=== PATIENT | female | born 1975 | race American Indian/Alaskan Native ===

== ENCOUNTER 2016-10-31 09:41 | Inpatient (IN) | payer MEDICAID ==
[2016-10-31 10:17] LABS: Mean Corpuscular HGB Conc 29 % (30-34); Platelet Count 354 K/mm3 (140-440); Red Blood Count 4.65 M/mm3 (3.65-5.03); White Blood Count 7.9 K/mm3 (4.5-11.0)
[2016-10-31 10:19] LABS: Hematocrit 32.1 % (30.3-42.9); Hemoglobin 9.4 gm/dl (10.1-14.3); Mean Corpuscular Hemoglobin 20 pg (28-32); Mean Corpuscular Volume 69 fl (79-97); Red Cell Distribution Width 25.8 % (13.2-15.2)
[2016-10-31 10:31] LABS: Anion Gap 18 mmol/L; BUN/Creatinine Ratio 18.57; Blood Urea Nitrogen 13 mg/dL (7-17); Calcium 8.8 mg/dL (8.4-10.2); Carbon Dioxide 22 mmol/L (22-30); Chloride 104.9 mmol/L (98-107); Glucose 87 mg/dL (65-100); Potassium 4.6 mmol/L (3.6-5.0); Sodium 140 mmol/L (137-145)
[2016-10-31 11:03] LABS: Anisocytosis 2+; Basophils % (Manual) 0 % (0.0-1.8); Blastocytes % (Manual) 0 %; Hypochromasia 2+; Microcytosis 2+
[2016-10-31 11:04] LABS: Diff Status Complete
--- NOTE | 2016-10-31 12:35 | Emergency Department Report ---
ED Chest Pain HPI - General Chief Complaint: Chest Pain Stated Complaint: CHEST PAIN Time Seen by Provider: 10/31/16 11:54 Source: patient Mode of arrival: Ambulatory Limitations: No Limitations - History of Present Illness Initial Comments: Patient complains of nonradiating left-sided anterior chest pain which is nonpleuritic and described as a heaviness. She states that she has had it since . She went to [place] on Saturday. She was admitted to the hospital through Saturday. She states that she receive 2 units of blood because "my iron was low". She states her last period was in July and it was heavy like she is not since had any vaginal bleeding. She states at [place] she was not informed that she had any blood in her stool. She states that she had a negative CAT scan at [place]. She does not believe that she had cardiac testing other than an EKG. Yesterday she states that she had some shortness of breath with her chest pain. She states that chest pain does seem to be associated to some degree with exertion. She also states that it improves if she lays down and worsens if she sits up. She denies any associated symptoms otherwise specifically nausea vomiting dizziness and sweating. MD Complaint: chest pain -: week(s) Onset: during exertion Pain Location: left chest Pain Radiation: none Severity: severe (stated severe at triage but is in no distress whatsoever now) Quality: pressure Consistency: intermittent Improves With: nothing Worsens With: nothing re: denies: nausea, vomting, diaphoresis, sense of impending doom Other Symptoms: denies: cough, fever, syncope Treatments Prior to Arrival: other (hospitalization and transfusion at [place]) Aspirin use within the Past 7 Days: (1) Yes - Related Data On Oral Contraceptives: No Previous Rx's Medication Instructions Recorded Last Taken Type Cyclobenzaprine [Flexeril 10 MG 10 mg PO TID PRN #30 tablet 11/04/14 Unknown Rx TAB] HYDROcodone/APAP 5-325 [[place] 1 each PO Q6HR PRN #15 tablet 11/04/14 Unknown Rx 5-325 mg TAB] Ibuprofen [Motrin 800 MG tab] 800 mg PO Q8HR #30 tablet 11/04/14 Unknown Rx Fluconazole [Diflucan TAB] 150 mg PO ONCE #1 tablet 01/14/15 Unknown Rx Nitrofurantoin [place]/M-Cryst 100 mg PO Q12HR #14 capsule 01/14/15 Unknown Rx [Macrobid CAP] Azithromycin [Zithromax TAB] 250 mg PO QDAY #6 tablet 06/10/15 Unknown Rx Prednisone [predniSONE 10 mg 10 mg PO .TAPER #1 tab.ds.pk 06/10/15 Unknown Rx (6-Day Pack, 21 Tabs)] Promethazine /Codeine 5 ml PO Q6H PRN #100 ml 06/10/15 Unknown Rx [Phenergan/Codeine 6.25-10 mg/5Ml] Allergies Allergy/AdvReac Type Severity Reaction Status Date / Time No Known Allergies Allergy Verified 01/14/15 09:36 Heart Score - HEART Score History: Moderately suspicious EKG: Non-specific Age: < 45 Risk factors: 1-2 risk factors Troponin: < normal limit HEART Score: 3 - Critical Actions Critical Actions: 0-3 pts:0.9-1.7%risk of adverse cardiac event.Candidate for discharge ED Review of Systems ROS: Stated complaint: CHEST PAIN Other details as noted in HPI Constitutional: denies: chills, fever Eyes: denies: eye pain, eye discharge, vision change ENT: denies: ear pain, throat pain Respiratory: denies: cough, shortness of breath, wheezing Cardiovascular: chest pain. denies: palpitations Endocrine: no symptoms reported Gastrointestinal: denies: abdominal pain, nausea, diarrhea Genitourinary: denies: urgency, dysuria, discharge Musculoskeletal: denies: back pain, joint swelling, arthralgia Skin: denies: rash, lesions Neurological: denies: headache, weakness, paresthesias Psychiatric: denies: anxiety, depression Hematological/Lymphatic: denies: easy bleeding, easy bruising ED Past Medical Hx - Past Medical History Previous Medical History?: Yes Hx Kidney Stones: Yes - Surgical History Past Surgical History?: Yes Additional Surgical History: X 1. STENT FOR KIDNEY STONES - Social History Smoking Status: Former Smoker Substance Use Type: None - Medications Home Medications: Home Medications Medication Instructions Recorded Confirmed Last Taken Type Cyclobenzaprine [Flexeril 10 MG 10 mg PO TID PRN #30 tablet 11/04/14 Unknown Rx TAB] HYDROcodone/APAP 5-325 [[place] 1 each PO Q6HR PRN #15 tablet 11/04/14 Unknown Rx 5-325 mg TAB] Ibuprofen [Motrin 800 MG tab] 800 mg PO Q8HR #30 tablet 11/04/14 Unknown Rx Fluconazole [Diflucan TAB] 150 mg PO ONCE #1 tablet 01/14/15 Unknown Rx Nitrofurantoin [place]/M-Cryst 100 mg PO Q12HR #14 capsule 01/14/15 Unknown Rx [Macrobid CAP] Azithromycin [Zithromax TAB] 250 mg PO QDAY #6 tablet 06/10/15 Unknown Rx Prednisone [predniSONE 10 mg 10 mg PO .TAPER #1 tab.ds.pk 06/10/15 Unknown Rx (6-Day Pack, 21 Tabs)] Promethazine /Codeine 5 ml PO Q6H PRN #100 ml 06/10/15 Unknown Rx [Phenergan/Codeine 6.25-10 mg/5Ml] ED Physical Exam - General Limitations: No Limitations General appearance: alert, in no apparent distress - Head Head exam: Present: atraumatic, normocephalic - Eye Eye exam: Present: normal appearance. Absent: scleral icterus - ENT ENT exam: Present: mucous membranes moist - Neck Neck exam: Present: normal inspection - Respiratory Respiratory exam: Present: normal lung sounds bilaterally. Absent: respiratory distress - Cardiovascular Cardiovascular Exam: Present: regular rate, normal rhythm. Absent: systolic murmur, diastolic murmur, rubs, gallop - GI/Abdominal GI/Abdominal exam: Present: soft, normal bowel sounds. Absent: distended, tenderness, guarding, rebound, rigid - Extremities Exam Extremities exam: Present: normal inspection - Back Exam Back exam: Present: normal inspection - Neurological Exam Neurological exam: Present: alert, oriented X3, CN II-XII intact. Absent: motor sensory deficit - Psychiatric Psychiatric exam: Present: normal affect, normal mood - Skin Skin exam: Present: warm, dry, intact, normal color. Absent: rash ED Course Vital Signs 10/31/16 10/31/16 10/31/16 09:52 10:57 11:00 Temperature 98.8 F Pulse Rate 76 77 Respiratory 18 15 Rate Blood Pressure 125/87 128/77 O2 Sat by Pulse 100 100 100 Oximetry 10/31/16 10/31/16 10/31/16 11:01 11:15 11:30 Temperature Pulse Rate 75 74 Respiratory 16 22 24 Rate Blood Pressure 138/73 126/75 O2 Sat by Pulse 98 96 100 Oximetry 10/31/16 10/31/16 10/31/16 11:45 12:00 12:15 Temperature Pulse Rate 77 73 76 Respiratory 18 27 H 21 Rate Blood Pressure 119/74 124/75 117/74 O2 Sat by Pulse 100 100 100 Oximetry 10/31/16 10/31/16 12:31 12:45 Temperature Pulse Rate 79 78 Respiratory 19 17 Rate Blood Pressure 138/73 122/79 O2 Sat by Pulse 100 Oximetry - Reevaluation(s) Reevaluation #1: Patient continues to have no distress and no current chest pain. She did show me her Ash chart on her cell phone. The listed tests do not include a cardiac stress test nor a CT of the chest. At this juncture I do not think she requires a CT of her chest as her history is not consistent with pulmonary embolism. She does require stress testing in my opinion. She will be admitted to the hospital service for further care and evaluation and testing at their discretion. 10/31/16 13:18 10/31/16 13:19 JAISON score - Jaison Score Age > 65: (0) No Aspirin use within the Past 7 Days: (1) Yes 3 or more CAD Risk Factors: (0) No 2 or more Angina events in past 24 hrs: (0) No Known CAD with more than 50% Stenosis: (0) No Elevated Cardiac Markers: (0) No ST Deviation Greater than 0.5mm: (0) No JAISON Score: 1 ED Medical Decision Making - Lab Data Result diagrams: 10/31/16 10:02 10/31/16 10:02 Laboratory Results - last 24 hr 10/31/16 10/31/16 10:02 10:02 WBC 7.9 RBC 4.65 Hgb 9.4 L Hct 32.1 MCV 69 L MCH 20 L MCHC 29 L RDW 25.8 H Plt Count 354 Add Manual Diff Complete Total Counted 100 Seg Neuts % (Manual) 65.0 Band Neutrophils % 4.0 Lymphocytes % (Manual) 17.0 Reactive Lymphs % (Man) 0 Monocytes % (Manual) 11.0 H Eosinophils % (Manual) 3.0 Basophils % (Manual) 0 Metamyelocytes % 0 Myelocytes % 0 Promyelocytes % 0 Blast Cells % 0 Nucleated RBC % Not Reportable Seg Neutrophils # Man 5.1 Band Neutrophils # 0.3 Lymphocytes # (Manual) 1.3 Abs React Lymphs (Man) 0.0 Monocytes # (Manual) 0.9 H Eosinophils # (Manual) 0.2 Basophils # (Manual) 0.0 Metamyelocytes # 0.0 Myelocytes # 0.0 Promyelocytes # 0.0 Blast Cells # 0.0 WBC Morphology Not Reportable Hypersegmented Neuts Not Reportable Hyposegmented Neuts Not Reportable Hypogranular Neuts Not Reportable Smudge Cells Not Reportable Toxic Granulation Not Reportable Toxic Vacuolation Not Reportable Dohle Bodies Not Reportable Pelger-Huet Anomaly Not Reportable Jessi Rods Not Reportable Platelet Estimate Not Reportable Clumped Platelets Not Reportable Plt Clumps, EDTA Not Reportable Large Platelets Not Reportable Giant Platelets Not Reportable Platelet Satelliting Not Reportable Plt Morphology Comment Not Reportable RBC Morphology Not Reportable Dimorphic RBCs Yes Polychromasia Not Reportable Hypochromasia 2+ Poikilocytosis Not Reportable Anisocytosis 2+ Microcytosis 2+ Macrocytosis Not Reportable Spherocytes Not Reportable Pappenheimer Bodies Not Reportable Sickle Cells Not Reportable Target Cells Not Reportable Tear Drop Cells Not Reportable Ovalocytes Not Reportable Helmet Cells Not Reportable Ram-Penryn Bodies Not Reportable Geronimo Rings Not Reportable [place] Cells Not Reportable Bite Cells Not Reportable Crenated Cell Not Reportable Elliptocytes Not Reportable Acanthocytes (Spur) Not Reportable Rouleaux Not Reportable Hemoglobin C Crystals Not Reportable Schistocytes Not Reportable Malaria parasites Not Reportable Kenji Bodies Not Reportable Hem Pathologist Commnt No Sodium 140 Potassium 4.6 Chloride 104.9 Carbon Dioxide 22 Anion Gap 18 BUN 13 Creatinine 0.7 Estimated GFR > 60 BUN/Creatinine Ratio 18.57 Glucose 87 Calcium 8.8 Troponin T < 0.010 - EKG Data -: EKG Interpreted by Me EKG shows normal: sinus rhythm, axis, intervals, ST-T waves Rate: normal - EKG Data RSR in V1 and V2 10/31/16 12:35 - Radiology Data interpreted by me: Chest x-ray shows no acute process Critical care attestation.: If time is entered above; I have spent that time in minutes in the direct care of this critically ill patient, excluding procedure time. ED Disposition Clinical Impression: Chest pain Qualifiers: Chest pain type: unspecified Qualified Code(s): R07.9 - Chest pain, unspecified Anemia Qualifiers: Anemia type: unspecified type Qualified Code(s): D64.9 - Anemia, unspecified Disposition: 09 OP ADMIT IP TO THIS HOSP Is pt being admited?: Yes Does the pt Need Aspirin: Yes Condition: Stable Instructions: Chest Pain (ED) Referrals: PRIMARY CARE, [Primary Care Provider] - 3-5 Days Time of Disposition: 13:21
--- NOTE | 2016-10-31 12:54 | XRay Report ---
PORTABLE CHEST: Chest pain. An AP portable view of the chest demonstrates a normal cardiac contour considering the limits of this technique. The lungs are clear with no evidence of infiltrate, fluid or failure. IMPRESSION: Normal portable chest.
[2016-10-31] MEDS ORDERED: BABY ASPIRIN PO ONE (13:22)
--- NOTE | 2016-10-31 13:40 | Admit Criteria Form ---
Admission Criteria Documentation: CARDIOLOGY GRG Clinical Indications for Admission to Inpatient Care ( Place 'X' for any and all applicable criteria): Hospital admission is needed for appropriate care of the patient because of ANY ONE of the following (1): [ ] I. Hemodynamic instability as indicated by ALL of the following (1)(2)(3) (4)(5) [ ]a) Vital signs or other findings not as expected for chronic patient condition or baseline [ ]b) Instability indicated by ANY ONE of the following: [ ]i) Hypotension [ ]ii) Symptomatic Tachycardia unresponsive to treatment ( e.g., analgesia, fluids, sedation as indicated) [ ]iii) Inadequate perfusion indicated by ANY ONE of the following: [ ] 1) Lactic acidosis (> 2 mmol/L) [ ] 2) New abnormal capillary refill (> 3 seconds) [ ] 3) Reduced urine output [ ] 4) New altered mental status [ ]iv) Orthostatic vital sign changes unresponsive to treatment (e.g., fluids) [ ]v) IV inotropic or vasopressor medication required to maintain adequate blood pressure or perfusion [ ] II. Severe heart failure as indicated by ANY ONE of the following(17)(18) [ ]a) Respiratory distress [ ]b) Hypotension [ ]c) Anasarca (refractory to outpatient therapy) [ ]d) Cardiac arrhythmias of immediate concern [ ]e) Myocardial ischemia [ ] III. Cardiac arrhythmias or findings of immediate concern indicated by ANY ONE of the following (19)(20): [ ] a) Heart rhythms that are inherently dangerous or unstable indicated by ANY ONE of the following (21)(22)(23): [ ] i) Resuscitated ventricular fibrillation or cardiac arrest [ ] ii) Ventricular escape rhythm [ ] iii) Sustained ventricular tachycardia (30 seconds or more of ventricular rhythm at greater than 100 beats per minute) [ ] iv) Nonsustained ventricular tachycardia and ANY ONE of the following: [ ] 1) Suspected cardiac ischemia as cause or consequence of ventricular tachycardia [ ] 2) In setting of acute myocarditis [ ] b) Unstable cardiac conduction defects indicated by ANY ONE of the following(23)(24)(25) [ ] i) Type II second-degree atrioventricular block [ ]ii) Third-degree atrioventricular block [ ]iii) New-onset left bundle branch block with suspected myocardial ischemia [ ]c) Any heart rhythm and ANY ONE of the following (21)(22)(26)(27) (28) [ ] i) Continuous long-term ECG monitoring needed (e.g., initiation of drug requiring monitoring for more than 24 hours) [ ] ii) Patient has automatic implanted cardioverter defibrillator that is repeatedly firing, malfunctioning, or in need of immediate adjustment of settings beyond the scope of ambulatory or observation care [ ]d) Heart rhythms of concern due to ANY ONE of the following: [ ] i) Hypotension [ ] ii) Respiratory distress [ ] iii) Association with other significant symptoms (e.g., bradycardia with syncope or ongoing dizziness, supraventricular tachycardia with chest pain (14)(15)(17) [ ] IV. Monitoring for cardiac contusion beyond the scope of observation care needed [A](30)(31)(32) [ ] V. Surgical or device complication (e.g., valve replacement complication , pacemaker dysfunction) (35)(41)(44)(45)(46) [ ] . Inpatient palliative care needed. [B](49) Also use Inpatient Palliative Care Criteria [ ] VII. Nonbacterial thrombotic (marantic) endocarditis (36)(43)(47)(48) [X ] VIII. Cardiology condition, symptom, or finding for which emergency and observation care has failed or are not considered appropriate. [ ] IX. Acute valvular disease requiring inpatient as indicated by ANY ONE of the following (41) [ ]a) Acute valvular regurgitation (42) [ ]b) Noninfectious valvulitis (43) [ ]c) Obstructive valve thrombosis [ ]d) Paravalvular leak [ ]e) Other significant valvular disorder remaining after emergency or observation level of care (as appropriate) [ ]X. Pericardial disease requiring inpatient treatment as indicated by ANY ONE of the following (33)(34)(35)(36)(37) [ ]a) Suspected tamponade (38)(39)(40) [ ]b) Hemopericardium [ ]c) Other significant pericardial disorder remaining after emergency or observation level of care (as appropriate) [ ] XI. Cardiac ischemia beyond scope of emergency and observation care. [ ] XII. Hypertension requiring inpatient treatment as indicated by ANY ONE of the following (6)(7)(8) [ ]a) SBP greater than 220 mm Hg or DBP greater than 120 mmHg despite treatment [ ]b) SBP greater than 140 mm Hg or DBP greater than 100 mm Hg with evidence of acute end organ damage as indicated by ANY ONE of the following [ ] i) Altered mental status [ ] ii) Acute renal failure as indicated by new onset of ANY ONE of the following (9)(10)(11)(12)(13) [ ]1) 3-fold rise in serum creatinine from baseline [ ]2) Serum creatinine greater than 4 mg/dL ( 354 micromoles/L) with acute rise greater than 0.5 mg/dL (44.2 micromoles/L) [ ]3) Reduction of more than 75% in estimated glomerular filtration rate from baseline [ ]4) Estimated glomerular filtration rate less than 35 mL/min/1.73m2 (0.59 mL/sec/1.73m2) in child up to 18 years of age [ ]5) Cessation of urine output indicated by ALL of the following [ ]A. Adequate volume status [ ]B. Inadequate urine output as indicated by ANY ONE of the following [ ]a. Urine output less than 0.3 mL/kg/hr for 24 hours [ ]b. Anuria (urine output less than 0.1 mL/kg/hr) for 12 hours [ ] iii) Aortic dissection [ ] iv) Myocardial Ischemia [ ] v) Left ventricular heart failure [ ]vi) Retinal Hemorrhage [ ]vii) Other significant finding [ ]c) Hypertension in child requiring inpatient treatment as indicated by ALL of the following(14)(15)(16) [ ] i) Outpatient treatment not effective, not available, or not appropriate [ ]ii) SBP or DBP greater than 95th percentile for age [ ]iii) Evidence of acute end organ damage as indicated by ANY ONE of the following [ ]1) Altered mental status [ ]2) Acute renal failure as indicated by new onset of ANY ONE of the following(9)(10)(11)(12)(13) [ ]A. 3-fold rise in serum creatinine from baseline [ ]B. Serum creatinine greater than 4 mg/dL (354 micromoles/L) with acute rise greater than 0.5 mg/dL (44.2 micromoles/L) [ ]C. Reduction of more than 75% in estimated glomerular filtration rate from baseline [ ]D. Estimated glomerular filtration rate less than 35 mL/min/1.73m2 (0.59 mL/sec/1.73m2) in child up to 18 years of age [ ]E. Cessation of urine output indicated by ALL of the following [ ]a. Adequate volume status [ ]b. Inadequate urine output as indicated by ANY ONE of the following [ ]i) Urine output less than 0.3 mL/kg/hr for 24 hours [ ]ii) Anuria ( urine output less than 0.1 mL/kg/hr) for 12 hours [ ]3) Severe headache [ ]4) Visual disturbance [ ]5) Retinal hemorrhage [ ]6) Other significant finding [ ]XIII. Complications of transplanted heart indicated by ANY ONE of the following(61): [ ]a) Acute graft rejection requiring inpatient management (eg, intravenous immunosuppression)(62)(63) [ ]b) Acute graft heart failure indicated by ANY ONE of the following(64): [ ]i) Hemodynamic instability [ ]ii) Cardiac arrhythmias of immediate concern [ ]iii) Pulmonary edema that is very severe (eg, mechanical ventilation needed, imminent or likely, need for 100% oxygen to keep oxygen saturation above 90%) [ ]iv) Pulmonary edema that is persistent as indicated by ALL of the following: [ ]1) New need for oxygen therapy to keep oxygen saturation above 90% (or increased FiO2 need from baseline) [ ]2) Has not improved sufficiently with emergency department or observation care IV diuretics or other heart failure treatments[E] [ ]v) Altered mental status that is severe or persistent [ ]vi) Increased creatinine (new on laboratory test) with reduction of more than 50% in estimated glomerular filtration rate from baseline [ ]vii) Progressively (ongoing) rising creatinine (known from past laboratory test) with reduction of more than 25% in estimated glomerular filtration rate from baseline [ ]viii) Acute renal failure [ ]ix) Acute peripheral ischemia (eg, examination shows pulseless, cool, mottled, or cyanotic extremity) [ ]x) Pulmonary artery catheter monitoring needed [ ]xi) Other sign or symptom of heart failure requiring inpatient treatment (ie, too severe or not responsive to outpatient and observation care treatment) [ ]c) Infection requiring inpatient management (eg, Hemodynamic instability, need for intravenous antimicrobial treatment)(66)(67)(68)(69)(70) [ ]d) Cardiac allograft vasculopathy requiring inpatient management ( eg evidence of cardiac ischemia)(71) [ ]e) Other complication of transplanted heart (eg, stroke, severe pulmonary hypertension, severe valvular dysfunction) requiring inpatient management(72) The original [facility] [employer] content created by [email or web address] has been revised. The portions of the content which have been revised are identified through the use of italic text or in bold, and [facility] has neither reviewed nor approved the modified material. All other unmodified content is copyright [facility] [email or web address]. Please see references footnoted in the original [facility] [email or web address] edition 2016 Admission Criteria Met: Yes
--- NOTE | 2016-10-31 21:57 | History and Physical Report ---
History of Present Illness Date of examination: 10/31/16 Date of admission: 10/31/16 13:22 Chief complaint: Chest pain for 5 days History of present illness: History of Present Illness Initial Comments: Patient complains of nonradiating left-sided anterior chest pain which is nonpleuritic and described as a heaviness. She states that she has had it since . She went to [facility] on Saturday. She was admitted to the hospital through Saturday. She states that she receive 2 units of blood because "my iron was low". She states her last period was in July and it was heavy like she is not since had any vaginal bleeding. She states at [facility] she was not informed that she had any blood in her stool. She states that she had a negative CAT scan at [facility]. She does not believe that she had cardiac testing other than an EKG. Yesterday she states that she had some shortness of breath with her chest pain. She states that chest pain does seem to be associated to some degree with exertion. She also states that it improves if she lays down and worsens if she sits up. She denies any associated symptoms otherwise specifically nausea vomiting dizziness and sweating. HEART Score History: Moderately suspicious EKG: Non-specific Age: < 45 Risk factors: 1-2 risk factors Troponin: < normal limit HEART Score: 3 - Past Medical History Previous Medical History?: Yes Hx Kidney Stones: Yes - Surgical History Past Surgical History?: Yes Additional Surgical History: X 1. STENT FOR KIDNEY STONES - Social History Smoking Status: Former Smoker Substance Use Type: None - Medications Home Medications: Home Medications Medication Instructions Recorded Confirmed Last Taken Type Cyclobenzaprine [Flexeril 10 MG 10 mg PO TID PRN #30 tablet 11/04/14 Unknown Rx TAB] HYDROcodone/APAP 5-325 [[place] 1 each PO Q6HR PRN #15 tablet 11/04/14 Unknown Rx 5-325 mg TAB] Ibuprofen [Motrin 800 MG tab] 800 mg PO Q8HR #30 tablet 11/04/14 Unknown Rx Fluconazole [Diflucan TAB] 150 mg PO ONCE #1 tablet 01/14/15 Unknown Rx Nitrofurantoin Kemper/M-Cryst 100 mg PO Q12HR #14 capsule 01/14/15 Unknown Rx [Macrobid CAP] Azithromycin [Zithromax TAB] 250 mg PO QDAY #6 tablet 03/18/16 Unknown Rx Prednisone [predniSONE 10 mg 10 mg PO .TAPER #1 tab.ds.pk 06/10/15 Unknown Rx (6-Day Pack, 21 Tabs)] Promethazine /Codeine 5 ml PO Q6H PRN #100 ml 06/10/15 Unknown Rx [Phenergan/Codeine 6.25-10 mg/5Ml] ROS: Stated complaint: CHEST PAIN Other details as noted in HPI Constitutional: denies: chills, fever Eyes: denies: eye pain, eye discharge, vision change ENT: denies: ear pain, throat pain Respiratory: denies: cough, shortness of breath, wheezing Cardiovascular: chest pain. denies: palpitations Endocrine: no symptoms reported Gastrointestinal: denies: abdominal pain, nausea, diarrhea Genitourinary: denies: urgency, dysuria, discharge Musculoskeletal: denies: back pain, joint swelling, arthralgia Skin: denies: rash, lesions Neurological: denies: headache, weakness, paresthesias Psychiatric: denies: anxiety, depression Hematological/Lymphatic: denies: easy bleeding, easy bruising Medications and Allergies Allergies Allergy/AdvReac Type Severity Reaction Status Date / Time No Known Allergies Allergy Verified 01/14/15 09:36 Home Medications Medication Instructions Recorded Confirmed Last Taken Type No Known Home Medications [No 10/31/16 10/31/16 Unknown History Reported Home Medications] Exam - Constitutional Vitals: Temp Pulse Resp BP Pulse Ox 98.4 F 72 20 109/59 99 10/31/16 20:58 10/31/16 20:58 10/31/16 20:58 10/31/16 20:58 10/31/16 20:58 General appearance: Present: no acute distress, well-nourished - EENT Eyes: Present: PERRL ENT: hearing intact, clear oral mucosa - Neck Neck: Present: supple, normal ROM - Respiratory Respiratory effort: normal Respiratory: bilateral: CTA - Cardiovascular Heart Sounds: Present: S1 & S2. Absent: rub, click - Extremities Extremities: pulses symmetrical, No edema Peripheral Pulses: within normal limits - Abdominal General gastrointestinal: Present: soft, non-tender, non-distended, normal bowel sounds Female genitourinary: Present: normal - Integumentary Integumentary: Present: clear, warm, dry - Musculoskeletal Musculoskeletal: gait normal, strength equal bilaterally - Psychiatric Psychiatric: appropriate mood/affect, intact judgment & insight - Neurologic Neurologic: CNII-XII intact, moves all extremities Results - Labs CBC & Chem 7: 10/31/16 10:02 10/31/16 10:02 Labs: Laboratory Last Values WBC 7.9 K/mm3 (4.5-11.0) 10/31/16 10:02 RBC 4.65 M/mm3 (3.65-5.03) 10/31/16 10:02 Hgb 9.4 gm/dl (10.1-14.3) L 10/31/16 10:02 Hct 32.1 % (30.3-42.9) 10/31/16 10:02 MCV 69 fl (79-97) L 10/31/16 10:02 MCH 20 pg (28-32) L 10/31/16 10:02 MCHC 29 % (30-34) L 10/31/16 10:02 RDW 25.8 % (13.2-15.2) H 10/31/16 10:02 Plt Count 354 K/mm3 (140-440) 10/31/16 10:02 Add Manual Diff Complete 10/31/16 10:02 Total Counted 100 10/31/16 10:02 Seg Neuts % (Manual) 65.0 % (40.0-70.0) 10/31/16 10:02 Band Neutrophils % 4.0 % 10/31/16 10:02 Lymphocytes % (Manual) 17.0 % (13.4-35.0) 10/31/16 10:02 Reactive Lymphs % (Man) 0 % 10/31/16 10:02 Monocytes % (Manual) 11.0 % (0.0-7.3) H 10/31/16 10:02 Eosinophils % (Manual) 3.0 % (0.0-4.3) 10/31/16 10:02 Basophils % (Manual) 0 % (0.0-1.8) 10/31/16 10:02 Metamyelocytes % 0 % 10/31/16 10:02 Myelocytes % 0 % 10/31/16 10:02 Promyelocytes % 0 % 10/31/16 10:02 Blast Cells % 0 % 10/31/16 10:02 Nucleated RBC % Not Reportable 10/31/16 10:02 Seg Neutrophils # Man 5.1 K/mm3 (1.8-7.7) 10/31/16 10:02 Band Neutrophils # 0.3 K/mm3 10/31/16 10:02 Lymphocytes # (Manual) 1.3 K/mm3 (1.2-5.4) 10/31/16 10:02 Abs React Lymphs (Man) 0.0 K/mm3 10/31/16 10:02 Monocytes # (Manual) 0.9 K/mm3 (0.0-0.8) H 10/31/16 10:02 Eosinophils # (Manual) 0.2 K/mm3 (0.0-0.4) 10/31/16 10:02 Basophils # (Manual) 0.0 K/mm3 (0.0-0.1) 10/31/16 10:02 Metamyelocytes # 0.0 K/mm3 10/31/16 10:02 Myelocytes # 0.0 K/mm3 10/31/16 10:02 Promyelocytes # 0.0 K/mm3 10/31/16 10:02 Blast Cells # 0.0 K/mm3 10/31/16 10:02 WBC Morphology Not Reportable 10/31/16 10:02 Hypersegmented Neuts Not Reportable 10/31/16 10:02 Hyposegmented Neuts Not Reportable 10/31/16 10:02 Hypogranular Neuts Not Reportable 10/31/16 10:02 Smudge Cells Not Reportable 10/31/16 10:02 Toxic Granulation Not Reportable 10/31/16 10:02 Toxic Vacuolation Not Reportable 10/31/16 10:02 Dohle Bodies Not Reportable 10/31/16 10:02 Pelger-Huet Anomaly Not Reportable 10/31/16 10:02 Jessi Rods Not Reportable 10/31/16 10:02 Platelet Estimate Not Reportable 10/31/16 10:02 Clumped Platelets Not Reportable 10/31/16 10:02 Plt Clumps, EDTA Not Reportable 10/31/16 10:02 Large Platelets Not Reportable 10/31/16 10:02 Giant Platelets Not Reportable 10/31/16 10:02 Platelet Satelliting Not Reportable 10/31/16 10:02 Plt Morphology Comment Not Reportable 10/31/16 10:02 RBC Morphology Not Reportable 10/31/16 10:02 Dimorphic RBCs Yes 10/31/16 10:02 Polychromasia Not Reportable 10/31/16 10:02 Hypochromasia 2+ 10/31/16 10:02 Poikilocytosis Not Reportable 10/31/16 10:02 Anisocytosis 2+ 10/31/16 10:02 Microcytosis 2+ 10/31/16 10:02 Macrocytosis Not Reportable 10/31/16 10:02 Spherocytes Not Reportable 10/31/16 10:02 Pappenheimer Bodies Not Reportable 10/31/16 10:02 Sickle Cells Not Reportable 10/31/16 10:02 Target Cells Not Reportable 10/31/16 10:02 Tear Drop Cells Not Reportable 10/31/16 10:02 Ovalocytes Not Reportable 10/31/16 10:02 Helmet Cells Not Reportable 10/31/16 10:02 Ram-[place] Bodies Not Reportable 10/31/16 10:02 [place] Rings Not Reportable 10/31/16 10:02 [place] Cells Not Reportable 10/31/16 10:02 Bite Cells Not Reportable 10/31/16 10:02 Crenated Cell Not Reportable 10/31/16 10:02 Elliptocytes Not Reportable 10/31/16 10:02 Acanthocytes (Spur) Not Reportable 10/31/16 10:02 Rouleaux Not Reportable 10/31/16 10:02 Hemoglobin C Crystals Not Reportable 10/31/16 10:02 Schistocytes Not Reportable 10/31/16 10:02 Malaria parasites Not Reportable 10/31/16 10:02 Kenji Bodies Not Reportable 10/31/16 10:02 Hem Pathologist Commnt No 10/31/16 10:02 Sodium 140 mmol/L (137-145) 10/31/16 10:02 Potassium 4.6 mmol/L (3.6-5.0) 10/31/16 10:02 Chloride 104.9 mmol/L (98-107) 10/31/16 10:02 Carbon Dioxide 22 mmol/L (22-30) 10/31/16 10:02 Anion Gap 18 mmol/L 10/31/16 10:02 BUN 13 mg/dL (7-17) 10/31/16 10:02 Creatinine 0.7 mg/dL (0.7-1.2) 10/31/16 10:02 Estimated GFR > 60 ml/min 10/31/16 10:02 BUN/Creatinine Ratio 18.57 % 10/31/16 10:02 Glucose 87 mg/dL (65-100) 10/31/16 10:02 Calcium 8.8 mg/dL (8.4-10.2) 10/31/16 10:02 Troponin T < 0.010 ng/mL (0.00-0.029) 10/31/16 16:46 Short CBC 10/31/16 Range/Units 10:02 WBC 7.9 (4.5-11.0) K/mm3 Hgb 9.4 L (10.1-14.3) gm/dl Hct 32.1 (30.3-42.9) % Plt Count 354 (140-440) K/mm3 BMP 10/31/16 10:02 Sodium 140 Potassium 4.6 Chloride 104.9 Carbon Dioxide 22 BUN 13 Creatinine 0.7 Glucose 87 Calcium 8.8 Cardiac Enzymes 10/31/16 10/31/16 10/31/16 Range/Units 10:02 13:07 16:46 Total Creatine Kinase (30-135) units/L CK-MB (CK-2) (0.0-4.0) ng/mL Troponin T < 0.010 < 0.010 < 0.010 (0.00-0.029) ng/mL 10/31/16 11/01/16 Range/Units 22:32 04:53 Total Creatine Kinase 57 48 (30-135) units/L CK-MB (CK-2) < 1.0 < 1.0 (0.0-4.0) ng/mL Troponin T < 0.010 < 0.010 (0.00-0.029) ng/mL - Imaging and Cardiology EKG: report reviewed (NSR 80/minLVH) Chest x-ray: report reviewed (NAF) Assessment and Plan Advance Directives: Yes (FC) VTE prophylaxis?: Chemical Plan of care discussed with patient/family: Yes - Patient Problems (1) Chest pain Current Visit: Yes Status: Acute Qualifiers: Chest pain type: unspecified Ischemic chest pain type: I Qualified Code(s ): R07.9 - Chest pain, unspecified Plan to address problem: Chest pain r/o MD protocol .Serial cardiac enzymes andlexiscan in AM DDX of Costochondritis and GERD to be ruled out (2) Anemia Current Visit: Yes Status: Chronic Qualifiers: Anemia type: iron deficiency Iron deficiency anemia type: I Vitamin B12 deficiency anemia type: V Folate deficiency anemia type: F Bone marrow failure anemia type: B Hemolytic anemia type: H Other causes of anemia: O Chronic kidney disease stage: C Qualified Code(s): D64.9 - Anemia, unspecified Plan to address problem: Sec to Menorrhagia.Was transfused recently.W/u as out patient.F/u with ObGyn (3) DVT prophylaxis Current Visit: Yes Status: Acute Plan to address problem: on Lovenox
[2016-10-31] MEDS ORDERED: ZOFRAN IV PRN (21:58)
[2016-10-31] MEDS ORDERED: MILK OF MAGNESIA PO PRN (21:58)
[2016-10-31] MEDS ORDERED: PERCOCET 5/325 PO PRN (21:58)
[2016-10-31] MEDS ORDERED: DILAUDID IV PRN (21:58)
[2016-10-31] MEDS ORDERED: DULCOLAX PR PRN (21:58)
[2016-10-31] MEDS ORDERED: TYLENOL PO PRN (21:58)
[2016-10-31] MEDS ORDERED: D5NS 1,000 ML IV SCH (22:00)
[2016-11-01 00:06] LABS: Creatine Kinase MB < 1.0 ng/mL (0.0-4.0)
[2016-11-01 00:11] LABS: Creatine Kinase 57 units/L (30-135)
[2016-11-01 06:39] LABS: Creatine Kinase 48 units/L (30-135)
[2016-11-01 06:46] LABS: Creatine Kinase MB < 1.0 ng/mL (0.0-4.0)
--- NOTE | 2016-11-01 09:52 | Discharge Summary ---
Providers - Providers Date of Admission: 10/31/16 13:22 Date of discharge: 11/01/16 Attending physician: RADHA MAJANO Primary care physician: PAPER SLITTER Hospitalization Condition: Stable Hospital course: Discharge diagnosis: (1) Chest pain Current Visit: Yes Status: Acute Qualifiers: Chest pain type: unspecified Ischemic chest pain type: I Qualified Code(s ): R07.9 - Chest pain, unspecified Plan to address problem: Chest pain r/o CT protocol .Serial cardiac enzymes andlexiscan in AM DDX of Costochondritis and GERD to be ruled out (2) Anemia Current Visit: Yes Status: Chronic Qualifiers: Anemia type: iron deficiency Iron deficiency anemia type: I Vitamin B12 deficiency anemia type: V Folate deficiency anemia type: F Bone marrow failure anemia type: B Hemolytic anemia type: H Other causes of anemia: O Chronic kidney disease stage: C Qualified Code(s): D64.9 - Anemia, unspecified Plan to address problem: Sec to Menorrhagia.Was transfused recently.W/u as out patient.F/u with ObGyn (3) DVT prophylaxis Current Visit: Yes Status: Acute Plan to address problem: on Lovenox Disposition: DC-01 TO HOME OR SELFCARE Time spent for discharge: 32 minutes Core Measure Documentation - Palliative Care Palliative Care/ Comfort Measures: Not Applicable - Core Measures Any of the following diagnoses?: none Exam - Constitutional Vitals: Temp Pulse Resp BP Pulse Ox 98.1 F 74 18 111/75 98 11/01/16 07:55 11/01/16 07:55 11/01/16 07:55 11/01/16 07:55 11/01/16 07:55 General appearance: Present: no acute distress, well-nourished - EENT Eyes: Present: PERRL ENT: hearing intact, clear oral mucosa - Neck Neck: Present: supple, normal ROM - Respiratory Respiratory effort: normal Respiratory: bilateral: CTA - Cardiovascular Heart Sounds: Present: S1 & S2. Absent: rub, click - Extremities Extremities: pulses symmetrical, No edema Peripheral Pulses: within normal limits - Abdominal General gastrointestinal: Present: soft, non-tender, non-distended, normal bowel sounds - Integumentary Integumentary: Present: clear, warm, dry - Musculoskeletal Musculoskeletal: gait normal, strength equal bilaterally - Psychiatric Psychiatric: appropriate mood/affect, intact judgment & insight - Neurologic Neurologic: CNII-XII intact, moves all extremities Plan Activity: advance as tolerated Weight Bearing Status: Weight Bear as Tolerated Diet: low fat, low salt Follow up with: PRIMARY CARE, [Primary Care Provider] - 3-5 Days Prescriptions: Pantoprazole [Protonix] 40 mg PO QDAY #30 tablet
--- NOTE | 2016-11-01 10:48 | Query- Chest Pain ---
Hima Sawyer____Sally Date:___11/01/16 Robotics Engineer/CDS:____Alvaro Felix Phone#:___[phone] Exercise your independent professional judgment when responding to query. Questions asked do not imply a particular answer is desired or expected. We greatly appreciate your clarification on this issue. Clinical Documentation States: 41 year old female was admitted on 10/31/16. The H&P states " Patient complains of nonradiating left-sided anterior chest pain which is nonpleuritic and described as a heaviness (1) Chest pain Current Visit: Yes Status: Acute Qualifiers: Chest pain type: unspecified Ischemic chest pain type: I Qualified Code(s ): R07.9 - Chest pain, unspecified Plan to address problem: Chest pain r/o MA protocol .Serial cardiac enzymes andlexiscan in AM DDX of Costochondritis and GERD to be ruled out " The discharge summary states " Discharge diagnosis: (1) Chest pain Current Visit: Yes Status: Acute Qualifiers: Chest pain type: unspecified Ischemic chest pain type: I Qualified Code(s ): R07.9 - Chest pain, unspecified Plan to address problem: Chest pain r/o MA protocol .Serial cardiac enzymes andlexiscan in AM DDX of Costochondritis and GERD to be ruled out " Please document the etiology of Chest Pain: [ ] Myocardial Infarction [ ] Pneumonia [ ] Mediastinitis [ ] Costochondritis [ ] Pulmonary Embolism [ ] Coronary Artery Disease [x ] GERD [ ] Other: [ ] Comment/Explanation: Present on Admission: [ ] Yes (Y) [ ] Clinically undeterminable (W) [ ] No(N) Please document response in your Progress Notes and/or Discharge Summary and indicate if the condition was present on admission. JASON
[2016-11-01] MEDS ORDERED: LEXISCAN IV ONE ×2 (11:10→11:15)
[2016-11-01 18:17] VITALS: BP 119/66
--- NOTE | 2016-11-02 04:32 | Treadmill Report ---
THALLIUM STRESS TEST LEFT VENTRICLE: Left ventricular chamber size is within normal limits. Perfusion study demonstrates a small fixed apical defect, no reversibility on the resting study. Gated analysis demonstrates normal left ventricular systolic function, ejection fraction 64%. CONCLUSION: Small fixed apical defect likely due to breast attenuation artifact versus normal apical thinning. There is no reversible ischemia demonstrated in this study. Clinical correlation is recommended. JOB# [id number] CA/NTS
== END 2016-11-01 18:25 | disposition home or self-care (01) | DRG 392 ==
LOC: ED 09:41 → 4A 13:22
PROVIDERS: ADMIT Internal Medicine; ATTEND Internal Medicine
DX: K21.9 Gastro-esophageal reflux disease without esophagitis (principal); D50.9 Iron deficiency anemia, unspecified; N92.0 Excessive and frequent menstruation with regular cycle; Z79.2 Long term (current) use of antibiotics; Z79.899 Other long term (current) drug therapy; Z95.828 Presence of other vascular implants and grafts; Z87.442 Personal history of urinary calculi; Z87.891 Personal history of nicotine dependence
CPT/HCPCS: 36415; 71010; 78452; 80048; 81025; 82550; 82553; 84484; 85007; 85025; 93005; 93010; 93017; A9502; J2785; J7042

== ENCOUNTER 2020-05-31 10:11 | Emergency (ER) | payer MEDICAID ==
--- NOTE | 2020-05-31 10:44 | Event Note ---
ED Screening Note Date of service: 05/31/20 Time: 10:43 ED Screening Note: 44 yr old female with no pmhx presents to ED c/o Left sided face and body pain and tingling. Onset couple days ago. She denies any other symptoms This initial assessment/diagnostic orders/clinical plan/treatment(s) is/are subject to change based on patients health status, clinical progression and re- assessment by fellow clinical providers in the ED. Further treatment and workup at subsequent clinical providers discretion. Patient/guardian urged not to elope from the ED as their condition may be serious if not clinically assessed and managed. Initial orders include: CBC, CMP, EKG, trop, cxr, ct head
--- NOTE | 2020-05-31 11:20 | XRay Report ---
XR chest 1V ap INDICATION / CLINICAL INFORMATION: left sided pain COMPARISON: October 04, 2019 FINDINGS: SUPPORT DEVICES: None. HEART / MEDIASTINUM: No significant abnormality. LUNGS / PLEURA: Lungs are clear. Costophrenic sulci are sharp. No pneumothorax. ADDITIONAL FINDINGS: No significant additional findings. IMPRESSION: 1. No acute findings. Signer Name: Alejo James MD Signed: 05/31/2020 11:15 AM Workstation Name: [id number]
--- NOTE | 2020-05-31 11:37 | Cat Scan Report ---
CT head/brain wo con INDICATION / CLINICAL INFORMATION: 44 years Female; left sided pain/tingling. TECHNIQUE: Routine CT head without contrast. All CT scans at this location are performed using CT dos e reduction for ALARA by means of automated exposure control. COMPARISON: None. FINDINGS: BRAIN / INTRACRANIAL CONTENTS: The brain ORBITS: No significant abnormality of visualized orbits. SINUSES / MASTOIDS: No significant abnormality in the visualized paranasal sinuses or mastoid air kathy ls. CRANIOCERVICAL JUNCTION: No significant abnormality. ADDITIONAL FINDINGS: None. IMPRESSION: 1. There is no CT evidence of acute intracranial process. Signer Name: Joni Cartwright MD Signed: 05/31/2020 11:33 AM Workstation Name: [id number]
[2020-05-31 11:50] LABS: Basophils # (Auto) 0.1 K/mm3 (0.0-0.1); Eosinophils # (Auto) 0.1 K/mm3 (0.0-0.4); Eosinophils % (Auto) 1.9 % (0.0-4.3); Hemoglobin 7.4 gm/dl (10.1-14.3); Lymphocytes # (Auto) 1.8 K/mm3 (1.2-5.4); Lymphocytes % (Auto) 28.9 % (13.4-35.0); Mean Corpuscular HGB Conc 30 % (30-34); Mean Corpuscular Volume 69 fl (79-97); Monocytes # (Auto) 0.5 K/mm3 (0.0-0.8); Monocytes % (Auto) 7.8 % (0.0-7.3); Platelet Count 288 K/mm3 (140-440); Red Blood Count 3.65 M/mm3 (3.65-5.03); Red Cell Distribution Width 19.8 % (13.2-15.2)
--- NOTE | 2020-05-31 12:01 | Emergency Department Report ---
ED General Adult HPI - General Chief complaint: Pain General Stated complaint: LEFT SIDE PAINS Time Seen by Provider: 05/31/20 10:36 Source: patient Mode of arrival: Ambulatory Limitations: No Limitations - History of Present Illness Initial comments: The patient presents to the emergency department with a chief complaint of left- sided pain. Patient states she woke up Saturday morning and noticed that she was having a left-sided tingling of her head that went to her face and down into her neck through her arms into her legs. Patient states that it feels like pinprick on her left side. Symptoms were improved with BC like powders at home as well as other gean-gij-glgxlib medications. Patient denies any chest pain, shortness breath, or abdominal pain. Patient denies a history of hypertension or diabetes. Denies having symptoms like this in the past. Denies any focal neurological deficits such as extremity weakness, facial droop, slurred speech. Patient denies any trauma, any new activities or any new [id number]-[id number] medications. -: Sudden Location: head, face, left, upper extremity, lower extremity Radiation: distal Severity scale (0 -10): 1 Quality: other (Tingling) Consistency: constant Improves with: none Worsens with: none Associated Symptoms: denies other symptoms Treatments Prior to Arrival: none - Related Data Previous Rx's Medication Instructions Recorded Last Taken Type Pantoprazole [Protonix] 40 mg PO QDAY #30 tablet 11/01/16 Unknown Rx Acetaminophen [Non-Aspirin Extra 500 mg PO Q6HR PRN #30 tablet 10/05/19 Unknown Rx Strength] Albuterol Sulfate [Proair 90 mcg IH Q4HR PRN #2 aer.pow.ba 10/05/19 Unknown Rx Respiclick] Ferrous Sulfate [Feosol 325 MG tab] 325 mg PO TID #90 tablet 10/05/19 Unknown Rx Ibuprofen [Motrin] 400 mg PO Q8H PRN #30 tablet 10/05/19 Unknown Rx Pantoprazole [Protonix TAB] 20 mg PO QDAY #30 10/05/19 Unknown Rx Ibuprofen [Motrin] 800 mg PO Q8HR PRN #30 tablet 05/31/20 Unknown Rx predniSONE [Deltasone] 20 mg PO DAILY #15 tablet 05/31/20 Unknown Rx Allergies Allergy/AdvReac Type Severity Reaction Status Date / Time No Known Allergies Allergy Verified 01/14/15 09:36 ED Review of Systems ROS: Stated complaint: LEFT SIDE PAINS Other details as noted in HPI Comment: All other systems reviewed and negative Constitutional: denies: chills, fever Eyes: denies: eye pain, eye discharge, vision change ENT: denies: ear pain, throat pain Respiratory: denies: cough, shortness of breath, wheezing Cardiovascular: denies: chest pain, palpitations Endocrine: no symptoms reported Gastrointestinal: denies: abdominal pain, nausea, diarrhea Genitourinary: denies: urgency, dysuria, discharge Musculoskeletal: denies: back pain, joint swelling, arthralgia Skin: denies: rash, lesions Neurological: denies: headache, weakness, paresthesias Psychiatric: denies: anxiety, depression Hematological/Lymphatic: denies: easy bleeding, easy bruising ED Past Medical Hx - Past Medical History Previous Medical History?: Yes Hx Kidney Stones: Yes - Surgical History Past Surgical History?: Yes Additional Surgical History: X 1. STENT FOR KIDNEY STONES - Social History Smoking Status: Never Smoker Substance Use Type: None - Medications Home Medications: Home Medications Medication Instructions Recorded Confirmed Last Taken Type Pantoprazole [Protonix] 40 mg PO QDAY #30 tablet 11/01/16 Unknown Rx Acetaminophen [Non-Aspirin Extra 500 mg PO Q6HR PRN #30 tablet 10/05/19 Unknown Rx Strength] Albuterol Sulfate [Proair 90 mcg IH Q4HR PRN #2 aer.pow.ba 10/05/19 Unknown Rx Respiclick] Ferrous Sulfate [Feosol 325 MG tab] 325 mg PO TID #90 tablet 10/05/19 Unknown Rx Ibuprofen [Motrin] 400 mg PO Q8H PRN #30 tablet 10/05/19 Unknown Rx Pantoprazole [Protonix TAB] 20 mg PO QDAY #30 tablet.dr 10/05/19 Unknown Rx Ibuprofen [Motrin] 800 mg PO Q8HR PRN #30 tablet 05/31/20 Unknown Rx predniSONE [Deltasone] 20 mg PO DAILY #15 tablet 05/31/20 Unknown Rx ED Physical Exam - General Limitations: No Limitations General appearance: alert, in no apparent distress - Head Head exam: Present: atraumatic, normocephalic - Eye Eye exam: Present: normal appearance, PERRL, EOMI - ENT ENT exam: Present: mucous membranes moist - Neck Neck exam: Present: normal inspection - Respiratory Respiratory exam: Present: normal lung sounds bilaterally. Absent: respiratory distress - Cardiovascular Cardiovascular Exam: Present: regular rate, normal rhythm. Absent: systolic murmur, diastolic murmur, rubs, gallop - GI/Abdominal GI/Abdominal exam: Present: soft, normal bowel sounds. Absent: distended, tenderness - Extremities Exam Extremities exam: Present: normal inspection - Back Exam Back exam: Present: normal inspection - Neurological Exam Neurological exam: Present: alert, oriented X3, CN II-XII intact, normal gait, reflexes normal, other (Normal fcreht-fs-keib, insa-tb-ezal, rapid hand movement). Absent: motor sensory deficit - Psychiatric Psychiatric exam: Present: normal affect, normal mood - Skin Skin exam: Present: warm, dry, intact, normal color. Absent: rash ED Course Vital Signs 05/31/20 05/31/20 05/31/20 10:32 11:01 12:05 Temperature 98.3 F Pulse Rate 80 79 76 Respiratory 18 29 H 22 Rate Blood Pressure 153/69 112/67 Blood Pressure [Right] O2 Sat by Pulse 100 100 100 Oximetry 05/31/20 12:14 Temperature Pulse Rate Respiratory Rate Blood Pressure Blood Pressure 115/63 [Right] O2 Sat by Pulse Oximetry ED Medical Decision Making - Lab Data Result diagrams: 05/31/20 11:26 05/31/20 11:26 Lab Results 05/31/20 05/31/20 05/31/20 Range/Units 11:26 11:26 11:26 WBC 6.1 (4.5-11.0) K/mm3 RBC 3.65 (3.65-5.03) M/mm3 Hgb 7.4 L (10.1-14.3) gm/dl Hct 25.0 L (30.3-42.9) % MCV 69 L (79-97) fl MCH 20 L (28-32) pg MCHC 30 (30-34) % RDW 19.8 H (13.2-15.2) % Plt Count 288 (140-440) K/mm3 Lymph % (Auto) 28.9 (13.4-35.0) % Long % (Auto) 7.8 H (0.0-7.3) % Eos % (Auto) 1.9 (0.0-4.3) % Baso % (Auto) 1.0 (0.0-1.8) % Lymph # (Auto) 1.8 (1.2-5.4) K/mm3 Long # (Auto) 0.5 (0.0-0.8) K/mm3 Eos # (Auto) 0.1 (0.0-0.4) K/mm3 Baso # (Auto) 0.1 (0.0-0.1) K/mm3 Seg Neutrophils % 60.4 (40.0-70.0) % Seg Neutrophils # 3.7 (1.8-7.7) K/mm3 Sodium 137 (137-145) mmol/L Potassium 3.9 (3.6-5.0) mmol/L Chloride 105.9 (98-107) mmol/L Carbon Dioxide 25 (22-30) mmol/L Anion Gap 10 mmol/L BUN 8 (7-17) mg/dL Creatinine 0.7 (0.6-1.2) mg/dL Estimated GFR > 60 ml/min BUN/Creatinine Ratio 11 % Glucose 90 (65-100) mg/dL Calcium 8.8 (8.4-10.2) mg/dL Magnesium 2.00 (1.7-2.3) mg/dL Total Bilirubin 0.20 (0.1-1.2) mg/dL AST 12 (5-40) units/L ALT 15 (7-56) units/L Alkaline Phosphatase 70 (35-129) units/L Troponin T < 0.010 (0.00-0.029) ng/mL Total Protein 7.8 (6.3-8.2) g/dL Albumin 4.1 (3.9-5) g/dL Albumin/Globulin Ratio 1.1 % - Radiology Data Radiology results: report reviewed - Medical Decision Making Discussed results with patient Critical care attestation.: If time is entered above; I have spent that time in minutes in the direct care of this critically ill patient, excluding procedure time. ED Disposition Clinical Impression: Paresthesias Disposition: DC-01 TO HOME OR SELFCARE Is pt being admited?: No Does the pt Need Aspirin: No Condition: Stable Instructions: Paresthesia Additional Instructions: Return if worse Time of Disposition: 13:32
[2020-05-31 12:11] LABS: Alanine Aminotransferase 15 units/L (7-56); Albumin 4.1 g/dL (3.9-5); Blood Urea Nitrogen 8 mg/dL (7-17); Calcium 8.8 mg/dL (8.4-10.2); Hemolysis Index 1
[2020-05-31 12:17] LABS: BUN/Creatinine Ratio 11
[2020-05-31 13:51] VITALS: BP 106/57
== END 2020-05-31 13:50 | disposition home or self-care (01) ==
LOC: ED 10:11
DX: R20.2 Paresthesia of skin (principal); N20.0 Calculus of kidney; Z98.890 Other specified postprocedural states; Z79.899 Other long term (current) drug therapy
CPT/HCPCS: 36415; 70450; 71045; 80053; 83735; 84484; 85025; 93005

== ENCOUNTER 2020-06-06 18:28 | Emergency (ER) | payer MEDICAID ==
[2020-06-06] MEDS ORDERED: levETIRAcetam 1000 MG/NS 0.75% 1,000 MG/100 ML BAG IV ONE (18:50)
--- NOTE | 2020-06-06 19:07 | Emergency Department Report ---
Blank Doc - Documentation Documentation: Room 21 The patient is A&O x 3 and states she does not wish to be examined or have a work-up completed. Patient was reported to have 2 episodes of "seizure-like activity" by family the first episode lasting approximately 3 minutes and the second episode lasting approximately 1 minute and they were approximate 2 hours apart. EMS came in the interval to evaluate the patient the patient was not transported to the ED. Patient currently denies complaints and states that she does not wish to have an evaluation. I explained to the patient that I cannot exclude potential medical emergencies as etiology of her presentation and should she leave the hospital AGAINST MEDICAL ADVICE she may suffer increased morbidity and/or mortality. Patient verbalized understanding but states she does not wish to be evaluated. Patient told should she change her mind she should come back to the emergency department immediately for evaluation. Patient A&O x3
[2020-06-06 19:19] VITALS: BP 142/79
== END 2020-06-06 19:12 | disposition left against medical advice (07) ==
LOC: ED 18:28
DX: R56.9 Unspecified convulsions (principal); Z53.21 Procedure and treatment not carried out due to patient leaving prior to being seen by health care provider

== ENCOUNTER 2021-03-11 07:53 | Emergency (ER) | payer MEDICAID ==
--- NOTE | 2021-03-11 09:15 | Emergency Department Report ---
Minor Respiratory - HPI Chief Complaint: Upper Respiratory Infection Stated Complaint: SOB, COLD SWEATS, HARD COUGHING Time Seen by Provider: 03/11/21 08:47 Duration: 3 Days Severity: moderate Minor Respiratory: Yes Rhinorrhea, Yes Able to Tolerate Fluids, Yes Cough, Yes Chest Pain (Tightness with cough), Yes Shortness of Breath, No Sore Throat, No Ear Pain, No Sick Contacts, No Hemoptysis, No Fever Other History: 45-year-old -[place] female presents to the emergency room stating her symptoms started Saturday with a runny nose and nasal congestion. She states is when she started having cough with clear mucus chest tightness and shortness of breath with Cocet sweats. Patient is unvaccinated. She has not been recently Covid tested. She denies any past medical history currently takes no meds and has no known drug allergies. She denies any fever. Has not taken anything for cough. ED Review of Systems ROS: Stated complaint: SOB, COLD SWEATS, HARD COUGHING Other details as noted in HPI Comment: All other systems reviewed and negative ED Past Medical Hx - Past Medical History Hx Kidney Stones: Yes - Surgical History Additional Surgical History: X 1. STENT FOR KIDNEY STONES - Social History Smoking Status: Never Smoker - Medications Home Medications: Home Medications Medication Instructions Recorded Confirmed Last Taken Type Pantoprazole [Protonix] 40 mg PO QDAY #30 tablet 11/01/16 Unknown Rx Acetaminophen [Non-Aspirin Extra 500 mg PO Q6HR PRN #30 tablet 10/05/19 Unknown Rx Strength] Albuterol Sulfate [Proair 90 mcg IH Q4HR PRN #2 aer.pow.ba 10/05/19 Unknown Rx Respiclick] Ferrous Sulfate [Feosol 325 MG tab] 325 mg PO TID #90 tablet 10/05/19 Unknown Rx Ibuprofen [Motrin] 400 mg PO Q8H PRN #30 tablet 10/05/19 Unknown Rx Pantoprazole [Protonix TAB] 20 mg PO QDAY #30 10/05/19 Unknown Rx Ibuprofen [Motrin] 800 mg PO Q8HR PRN #30 tablet 05/31/20 Unknown Rx predniSONE [Deltasone] 20 mg PO DAILY #15 tablet 05/31/20 Unknown Rx Minor Respiratory Exam - Exam General: Vital signs noted. No distress. Alert and acting appropriately. HEENT: No Pharyngeal Erythema, No Pharyngeal Exudates, No Moist Mucous Membranes, No Rhinorrhea, No Conjuctival Injection, No Frontal Tenderness, No Maxillary Tenderness Ear: Neither EAC Pain Neck: Yes Supple, No Adenopathy Lungs: Yes Good Air Exchange, No Wheezes, No Ronchi, No Stridor, No Cough, No Labored Respirations, No Retractions, No Use of Accessory Muscles, No Other Abnormal Lung Sounds Heart: Yes Regular, No Murmur Abdomen: Yes Normal Bowel Sounds, No Tenderness, No Peritoneal Signs Skin: No Rash, No Edema Neurologic: Alert and oriented, no deficits. Musculoskeletal: Unremarkable. ED Course Vital Signs 03/11/21 08:14 Temperature 98.8 F Pulse Rate 98 H Respiratory 20 Rate Blood Pressure 122/69 [Right] O2 Sat by Pulse 98 Oximetry ED Medical Decision Making - Medical Decision Making 45-year-old -[place] female presents to the emergency room stating her symptoms started Saturday with a runny nose and nasal congestion. She states is when she started having cough with clear mucus chest tightness and shortness of breath with Cocet sweats. Patient is unvaccinated. She has not been recently Covid tested. She denies any past medical history currently takes no meds and has no known drug allergies. She denies any fever. Has not taken anything for cough. Patient has stable vital signs physical examination is unremarkable. Discussed with patient I recommend for her to get Covid testing. She can take [id number] cough and cold medication Tylenol ibuprofen for any pain or fever. Critical care attestation.: If time is entered above; I have spent that time in minutes in the direct care of this critically ill patient, excluding procedure time. ED Disposition Clinical Impression: Suspected COVID-19 virus infection Disposition: HOME / SELF CARE / HOMELESS Is pt being admited?: No Does the pt Need Aspirin: No Condition: Stable Instructions: COVID-19 Frequently Asked Questions, COVID-19: How to Protect You rself and Others - CDC, Prevent the Spread of COVID-19 if You Are Sick - CDC Additional Instructions: Your symptoms appear most consistent with a nonspecific viral syndrome. However, given this current pandemic, COVID-19 is in the differential of possibilities. Despite your previous negative COVID-19 test, I do recommend repeat outpatient Covid 19 testing. In the meantime, isolate/quarantine yourself and stay away from anyone who is elderly, immunocompromised or chronically ill. You can use ibuprofen every 6-8 hours and Tylenol every 4-8 hours, using the dosing on the back of the bottle, as needed for any fever or body aches. Return to the emergency department with any worsening of your symptoms, development of chest pain or shortness of breath, or with any acute distress. Referrals: PRIMARY MD ROGE [Primary Care Provider] - 3-5 Days SCOTT HERNDON MD [Staff Physician] - 3-5 Days Forms: Work/School Release Form(ED) Time of Disposition: 09:15
[2021-03-11 09:20] VITALS: BP 118/80
== END 2021-03-11 09:21 | disposition home or self-care (01) ==
LOC: ED 07:53
DX: Z20.822 Contact with and (suspected) exposure to COVID-19 (principal)
CPT/HCPCS: 99282

== ENCOUNTER 2021-11-20 11:29 | Emergency (ER) | payer MEDICAID ==
[2021-11-20 12:24] VITALS: BP 121/75
--- NOTE | 2021-11-20 12:53 | Emergency Department Report ---
ED Back Pain/Injury HPI - General Chief Complaint: Abdominal Pain Stated Complaint: LOWER RIGHT SIDE PAIN LOWER BACK INNER THIGH HURT Time Seen by Provider: 11/20/21 12:49 Source: patient Mode of arrival: Ambulatory Limitations: No Limitations - History of Present Illness Initial Comments: 46-year-old female multiple medical history presents to the emergency department with kidney pain. Patient describes sharp pain in her right side of her lower back started yesterday described as sudden. Pain is sharp radiates down to her right leg, with associated tingling. Difficulty walking, she denies abdominal pain, nausea vomiting, fever, no IV drug use, she denies dysuria, no bladder or bowel incontinence, no nausea vomiting headache dizziness or vision changes MD Complaint: back pain -: Gradual Similar Symptoms Previously: No Place: home Radiation: right leg Severity: severe Severity scale (0 -10): 10 Quality: tingling Consistency: constant Improves With: none Worsens With: sitting upright, walking Context: unknown Associated Symptoms: difficulty walking. denies: confusion, weakness, chest pain, numbness, cough, difficulty urinating, diaphoresis, incontinence, fever/chills, constipation, headaches, abdominal pain, loss of appetite, malaise, nausea/vomiting, rash, seizure, shortness of breath, syncope - Related Data Previous Rx's Medication Instructions Recorded Last Taken Type Pantoprazole [Protonix] 40 mg PO QDAY #30 tablet 11/01/16 Unknown Rx Acetaminophen [Non-Aspirin Extra 500 mg PO Q6HR PRN #30 tablet 10/05/19 Unknown Rx Strength] Albuterol Sulfate [Proair 90 mcg IH Q4HR PRN #2 aer.pow.ba 10/05/19 Unknown Rx Respiclick] Ferrous Sulfate [Feosol 325 MG tab] 325 mg PO TID #90 tablet 10/05/19 Unknown Rx Ibuprofen [Motrin] 400 mg PO Q8H PRN #30 tablet 10/05/19 Unknown Rx Pantoprazole [Protonix TAB] 20 mg PO QDAY #30 10/05/19 Unknown Rx Ibuprofen [Motrin] 800 mg PO Q8HR PRN #30 tablet 05/31/20 Unknown Rx predniSONE [Deltasone] 20 mg PO DAILY #15 tablet 05/31/20 Unknown Rx Allergies Allergy/AdvReac Type Severity Reaction Status Date / Time No Known Allergies Allergy Verified 11/20/21 12:25 ED Review of Systems ROS: Stated complaint: LOWER RIGHT SIDE PAIN LOWER BACK INNER THIGH HURT Other details as noted in HPI Constitutional: no symptoms reported Eyes: as per HPI ENT: denies: ear pain, throat pain Respiratory: see HPI. denies: cough Cardiovascular: denies: chest pain, palpitations, edema Endocrine: denies: intolerance to cold, intolerance to heat Gastrointestinal: denies: abdominal pain, nausea, vomiting, diarrhea Genitourinary: denies: urgency, dysuria, frequency, hematuria, discharge Musculoskeletal: back pain, myalgia. denies: arthralgia Skin: denies: rash, lesions Neurological: denies: headache, weakness, numbness, paresthesias, confusion, a bnormal gait Hematological/Lymphatic: denies: easy bleeding ED Past Medical Hx - Past Medical History Hx Kidney Stones: Yes - Surgical History Additional Surgical History: X 1. STENT FOR KIDNEY STONES - Social History Smoking Status: Never Smoker - Medications Home Medications: Home Medications Medication Instructions Recorded Confirmed Last Taken Type Pantoprazole [Protonix] 40 mg PO QDAY #30 tablet 11/01/16 Unknown Rx Acetaminophen [Non-Aspirin Extra 500 mg PO Q6HR PRN #30 tablet 10/05/19 Unknown Rx Strength] Albuterol Sulfate [Proair 90 mcg IH Q4HR PRN #2 aer.pow.ba 10/05/19 Unknown Rx Respiclick] Ferrous Sulfate [Feosol 325 MG tab] 325 mg PO TID #90 tablet 10/05/19 Unknown Rx Ibuprofen [Motrin] 400 mg PO Q8H PRN #30 tablet 10/05/19 Unknown Rx Pantoprazole [Protonix TAB] 20 mg PO QDAY #30 tablet.dr 10/05/19 Unknown Rx Ibuprofen [Motrin] 800 mg PO Q8HR PRN #30 tablet 05/31/20 Unknown Rx predniSONE [Deltasone] 20 mg PO DAILY #15 tablet 05/31/20 Unknown Rx ED Physical Exam - General Limitations: No Limitations General appearance: alert (Uncomfortable appearing), in no apparent distress - Head Head exam: Present: atraumatic - Eye Eye exam: Present: normal appearance, PERRL - ENT ENT exam: Present: normal exam, normal orophraynx - Neck Neck exam: Present: normal inspection. Absent: tenderness - Respiratory Respiratory exam: Present: normal lung sounds bilaterally. Absent: respiratory distress, wheezes - Cardiovascular Cardiovascular Exam: Present: regular rate, normal rhythm - GI/Abdominal GI/Abdominal exam: Present: soft. Absent: distended - Extremities Exam Extremities exam: Present: normal inspection, tenderness, normal capillary refill. Absent: pedal edema, joint swelling - Back Exam Back exam: Present: normal inspection, tenderness, CVA tenderness (R), muscle spasm, paraspinal tenderness. Absent: vertebral tenderness - Expanded Back Exam Expanded 1 - TTP - Neurological Exam Neurological exam: Present: alert, oriented X3, CN II-XII intact, reflexes normal, other (DTRs strength sensation intact bilaterally). Absent: motor sensory deficit - Psychiatric Psychiatric exam: Present: normal affect, normal mood - Skin Skin exam: Present: warm ED Course Vital Signs 11/20/21 12:20 Temperature 97.7 F Pulse Rate 79 Respiratory 16 Rate Blood Pressure 121/75 [Right] O2 Sat by Pulse 98 Oximetry ED Medical Decision Making - Medical Decision Making 46-year-old female multiple medical history presents to the emergency department with kidney pain. Patient describes sharp pain in her right side of her lower back started yesterday described as sudden. Pain is sharp radiates down to her right leg, with associated tingling. Difficulty walking, she denies abdominal pain, nausea vomiting, fever, no IV drug use, she denies dysuria, no bladder or bowel incontinence, no nausea vomiting headache dizziness or vision change Patient left during ED course treatment did not wait for proper treatment disposition Critical care attestation.: If time is entered above; I have spent that time in minutes in the direct care of this critically ill patient, excluding procedure time. ED Disposition Clinical Impression: Acute low back pain, Lumbar radiculopathy Disposition: 07 LEFT AWOL/ELOPED Is pt being admited?: No Does the pt Need Aspirin: No Condition: Stable Instructions: Abdominal Pain (ED)
== END 2021-11-21 08:26 | disposition left against medical advice (07) ==
LOC: ED 11:29
DX: M54.50 Low back pain, unspecified (principal); M54.16 Radiculopathy, lumbar region; N20.0 Calculus of kidney
CPT/HCPCS: 99281